=== PATIENT | female | born 1995 | race Caucasian/White ===

== ENCOUNTER 2017-12-14 03:41 | Emergency (ER) | payer OTHER ==
[2017-12-14] MEDS ORDERED: MAGNESIUM SULFATE 1GM 100 ML IV (04:13)
[2017-12-14] MEDS ORDERED: methylPREDNISolone SOD SUCC PF 125 MG/2 ML VIAL. (04:13)
[2017-12-14] MEDS: methylPREDNISolone SOD SUCC PF 125 MG/2 ML VIAL. IV (04:17)
[2017-12-14] MEDS: MAGNESIUM SULFATE 1GM 100 ML IV (04:17)
[2017-12-14] MEDS: ALBUTEROL SULFATE 2.5 MG/3 ML NEBU. CONT NEB (04:25)
== END 2017-12-14 05:38 | disposition home or self-care (01) ==
LOC: ER 03:41
DX: J45.901 Unspecified asthma with (acute) exacerbation (principal); Z88.8 Allergy status to other drugs, medicaments and biological substances
CPT/HCPCS: 96365; 96375; 99285-25; J2930; J3475; J7613

== ENCOUNTER → 2018-10-10 03:42 | Emergency (ER) | payer SELFPAY ==
[2017-12-14 05:34] VITALS: BP 123/63
[~2018-10-10 03:42] MED LIST: ALBU8.5H6 INH; BUDE10.2 IH; CETI10TA22 PO; CROMOLYN SODIUM IH; EPIN0.155 IJ; METH4TAB2 PO; TRIA10.8 NS
== END | disposition left against medical advice (07) ==
LOC: ER 03:41
DX: Z53.21 Procedure and treatment not carried out due to patient leaving prior to being seen by health care provider (principal)
CPT/HCPCS: 94644; 99281